=== PATIENT | male | born 1975 | race African-American/Black ===

== ENCOUNTER 2017-08-13 01:48 | Emergency (ER) | payer OTHER ==
[~2017-08-13] VITALS: Ht 195.6 cm; Wt 73.2 kg
[~2017-08-13 01:48] MED LIST: HYDROCODON-ACE1 EAC7 PO; MOBIC15 MG PO; PEN-VEE K,VEET500 MG PO; PHENERGAN-CODE120 ML PO; XYLOCAINE VISC100 ML MM
[2017-08-13] MEDS ORDERED: KEFLEX500 MG PO (03:44)
[2017-08-13 04:25] VITALS: BP 132/88
== END 2017-08-13 04:33 ==
LOC: EME 01:48
DX: S40.252A Superficial foreign body of left shoulder, initial encounter (principal); L97.329 Non-pressure chronic ulcer of left ankle with unspecified severity; Y35.493A Legal intervention involving other sharp objects, suspect injured, initial encounter; Z98.890 Other specified postprocedural states; F17.200 Nicotine dependence, unspecified, uncomplicated
CPT/HCPCS: 73610; 99281; 99284